=== PATIENT | male | born 1930 | race Caucasian/White ===

== ENCOUNTER 2016-10-07 08:51 | Emergency (ER) | payer MEDICARE ==
[~2016-10-07] VITALS: Ht 170.2 cm; Wt 81.6 kg
[~2016-10-07 08:51] MED LIST: GEMF600T3 PO; GLIM1TAB PO; MEMA10TA PO
--- NOTE | 2016-10-07 10:26 | Diagnostic Imaging Report ---
PROCEDURE: US right lower extremity venous. TECHNIQUE: Multiple real-time grayscale images were obtained over the right lower extremity in various projections. Additional duplex Doppler and color Doppler images were also obtained. INDICATION: Right leg pain. COMPARISON: None. FINDINGS: The right common femoral vein, superficial femoral vein, profunda femoris, and popliteal veins are normal. These vessels show normal compressibility, color flow, and doppler augmentation. The deep calf veins, although not very well seen, demonstrate no distinct intraluminal thrombus. IMPRESSION: Negative venous Doppler of the right lower extremity. Dictated by: Dictated on workstation # [id number]
--- NOTE | 2016-10-07 10:28 | Diagnostic Imaging Report ---
EXAM: PELVIS INDICATION: Fall. Right leg pain. COMPARISON: None. FINDINGS: Moderate degenerative changes in both hips. No fractures. Normal alignment. Degenerative changes in the visualized lower lumbar spine. Soft tissue shadows are unremarkable. IMPRESSION: No acute radiographic findings in the pelvis. Dictated by: Dictated on workstation # [id number]
--- NOTE | 2016-10-07 10:30 | Diagnostic Imaging Report ---
EXAM: TIBIA/FIBULA, RIGHT, 2 VIEWS INDICATION: Right leg pain. Fall. COMPARISON: None. FINDINGS: No fracture or malalignment. Vascular calcifications. Soft tissue shadows are otherwise unremarkable. No joint effusion. IMPRESSION: No acute radiographic findings in the right tibia or fibula. Dictated by: Dictated on workstation # [id number]
--- NOTE | 2016-10-07 10:33 | ED Lower Extremity ---
General Chief Complaint: Lower Extremity Stated Complaint: R LEG PAIN Nursing Triage Note: PT C/O R CALF PAIN X 4 DAYS. FAMILY DENIES INJURY. Nursing Sepsis Screen: No Definite Risk Source: patient (LIMITED HISTORIAN), family ( AND SON) History of Present Illness Time seen by provider: 09:08 Initial Comments PT ARRIVES VIA POV FROM HOME C/O RIGHT LEG PAIN X 4 DAYS--PAIN MOSTLY IN RIGHT CALF FELL 3 DAYS AGO, BUT DOES NOT THINK HE INJURED HIS LEG, AND THERE IS NO KNOWN INJURY PRIOR TO THAT NO PARESTHESIAS OR MOTOR DEFICITS NO PRIOR PROBLEMS WITH LEG PCP: [facility] Allergies and Home Medications Allergies Coded Allergies: No Known Drug Allergies (Unverified , 06/11/11) Home Medications Gemfibrozil 600 Mg Tablet, 1 EACH PO BID, (Reported) Glimepiride 1 Mg Tablet, 1 MG PO DAILY, (Reported) Meloxicam 7.5 Mg Tablet, 7.5 MG PO DAILY, #10 Prescribed by: RINA BUSH on 10/07/16 1138 Memantine Hcl 10 Mg Tablet, 1 EACH PO BID, (Reported) Constitutional: no symptoms reported Respiratory: no symptoms reported Cardiovascular: no symptoms reported Musculoskeletal: see HPI Skin: no symptoms reported Psychiatric/Neurological: No Symptoms Reported, Pre-Existing Deficit (PT WITH DEMENTIA) Past Jstnnko-Nrhrra-Ofzpzn Hx Patient Social History Alcohol Use: Denies Use Recreational Drug Use: No Smoking Status: Never a Smoker 2nd Hand Smoke Exposure: No Recent Foreign Travel: No Contact w/Someone Who Travel: No Recent Infectious Disease Expo: No Recent Hopitalizations: No Immunizations Up To Date Tetanus Booster (TDap): Unknown Date of Pneumonia Vaccine: Sep 02, 2014 Date of Influenza Vaccine: May 04, 2014 Seasonal Allergies Seasonal Allergies: No Surgeries HX Surgeries: Yes (HERNIA REPAIR) Surgeries: Abdominal, Transurethral Resection Respiratory Hx Respiratory Disorders: No Cardiovascular Hx Cardiac Disorders: Yes Cardiac Disorders: High Cholesterol Neurological Hx Neurological Disorders: Yes Neurological Disorders: Dementia, Parkinson's Disease Reproductive System Hx Reproductive Disorders: No Sexually Transmitted Disease: No HIV/AIDS: No Genitourinary Hx Genitourinary Disorders: Yes Genitourinary Disorders: Benign Prostatic Hyperpl Gastrointestinal Hx Gastrointestinal Disorders: Yes Gastrointestinal Disorders: Abdominal Hernia Musculoskeletal Hx Musculoskeletal Disorders: No Endocrine Hx Endocrine Disorders: No HEENT HX ENT Disorders: Yes HEENT Disorders: Chronic Ear Infection Cancer Hx Cancer: No Psychosocial Hx Psychiatric Problems: No Integumentary HX Skin/Integumentary Disorder: Yes Skin/Integumentary Disorders: Herpes Physical Exam Vital Signs Vital Sign - Last 12Hours 10/07/16 09:10 Temp 97.2 Pulse 55 Resp 16 B/P (MAP) 177/74 Pulse Ox 97 O2 Delivery Room Air Capillary Refill : Less Than 3 Seconds General Appearance: WD/WN, no apparent distress Neck: normal inspection Cardiovascular: regular rate, rhythm, no murmur Respiratory: normal breath sounds, no respiratory distress, no accessory muscle use Gastrointestinal: normal bowel sounds, soft Back: no CVA tenderness, no vertebral tenderness Hips: bilateral hip non-tender, bilateral hip normal inspection, bilateral hip normal range of motion, bilateral hip no evidence of injury Legs: right leg other (SLIGHT TENDERNESS IN RIGHT CALF) Knees: right knee non-tender, right knee normal inspection, right knee normal range of motion, right knee no evidence of injury Ankles: right ankle non-tender, right ankle normal inspection, right ankle normal range of motion, right ankle no evidence of injury Feet: right foot non-tender, right foot normal inspection, right foot normal range of motion, right foot no evidence of injury Neurologic/Tendon: normal sensation, normal motor functions, normal tendon functions 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 SLIGHTLY CONFUSED TO TIME?) Skin: normal color, warm/dry, No ecchymosis, other (NO WOUNDS OR EXTERNAL EVIDENCE OF TRAUMA) Progress/Results/Core Measures Results/Orders Lab Results Laboratory Tests Test 10/07/16 10:27 Range/Units White Blood Count 7.5 4.3-11.0 10^3/uL Red Blood Count 4.41 4.35-5.85 10^6/uL Hemoglobin 13.6 13.3-17.7 G/DL Hematocrit 40 40-54 % Mean Corpuscular Volume 91 80-99 FL Mean Corpuscular Hemoglobin 31 25-34 PG Mean Corpuscular Hemoglobin Concent 34 32-36 G/DL Red Cell Distribution Width 13.3 10.0-14.5 % Platelet Count 251 130-400 10^3/uL Mean Platelet Volume 8.9 7.4-10.4 FL Neutrophils (%) (Auto) 50 42-75 % Lymphocytes (%) (Auto) 38 12-44 % Monocytes (%) (Auto) 8 0-12 % Eosinophils (%) (Auto) 4 0-10 % Basophils (%) (Auto) 1 0-10 % Neutrophils # (Auto) 3.8 1.8-7.8 X 10^3 Lymphocytes # (Auto) 2.8 1.0-4.0 X 10^3 Monocytes # (Auto) 0.6 0.0-1.0 X 10^3 Eosinophils # (Auto) 0.3 0.0-0.3 10^3/uL Basophils # (Auto) 0.1 0.0-0.1 10^3/uL Prothrombin Time 12.9 12.2-14.7 SEC INR Comment 1.0 0.8-1.4 Activated Partial Thromboplast Time 31 24-35 SEC Sodium Level 134 L 135-145 MMOL/L Potassium Level 5.0 3.6-5.0 MMOL/L Chloride Level 100 98-107 MMOL/L Carbon Dioxide Level 26 21-32 MMOL/L Anion Gap 8 5-14 MMOL/L Blood Urea Nitrogen 19 H 7-18 MG/DL Creatinine 0.91 0.60-1.30 MG/DL Estimat Glomerular Filtration Rate > 60 BUN/Creatinine Ratio 21 Glucose Level 115 H 70-105 MG/DL Calcium Level 9.0 8.5-10.1 MG/DL Magnesium Level 2.2 1.8-2.4 MG/DL Total Bilirubin 0.5 0.1-1.0 MG/DL Aspartate Amino Transf (AST/SGOT) 24 5-34 U/L Alanine Aminotransferase (ALT/SGPT) < 6 0-55 U/L Alkaline Phosphatase 48 40-136 U/L B-Type Natriuretic Peptide 213.2 H <100.0 PG/ML Total Protein 6.3 L 6.4-8.2 G/DL Albumin 3.8 3.2-4.5 G/DL My Orders Orders - RINA BUSH DO Saline Lock/Iv-Start (10/07/16 09:13) BNP (10/07/16 09:13) Cbc With Automated Diff (10/07/16 09:13) Comprehensive Metabolic Panel (10/07/16 09:13) Magnesium (10/07/16 09:13) Protime With Inr (10/07/16 09:13) Partial Thromboplastin Time (10/07/16 09:13) Femur, Right, 2 Views (10/07/16 09:13) Tibia/Fibula, Right, 2 Views (10/07/16 09:13) Pelvis (10/07/16 09:13) Hip, Right, 2 Views (10/07/16 09:13) Us Venous Lower Ext Rt (10/07/16 09:13) Ketorolac Injection (Toradol Injection) (10/07/16 11:45) Vital Signs/I&O Vital Sign - Last 12Hours 10/07/16 10/07/16 09:10 11:55 Temp 97.2 97.2 Pulse 55 55 Resp 16 16 B/P (MAP) 177/74 Pulse Ox 97 97 O2 Delivery Room Air Blood Pressure Mean: 108 Diagnostic Imaging Comments ULTRASOUND RIGHT LEG--NO DVT, PER RADIOLOGIST REPORT @ 1033 XRAYS PELVIS, RIGHT HIP, RIGHT FEMUR, RIGHT TIB-FIB--NO ACUTE PROCESS, PER RADIOLOGIST REPORTS ( HIP AND FEMUR REPORTS STILL PENDING AT TIME OF DISMISSAL, BUT NO ACUTE PROCESS NOTED BY ME) Reviewed: Reviewed by Me Departure Impression Impression: Primary Impression: Right leg pain Disposition: 01 HOME, SELF-CARE Condition: Stable Departure-Patient Inst. Referrals: NGOC PUGA MD (PCP/Family) Primary Care Physician Patient Instructions: Muscle and Bone Pain (DC) Add. Discharge Instructions: ACTIVITIES TOLERATED FOLLOW UP WITH YOUR DR IN 3-4 DAYS IF NO BETTER All discharge instructions reviewed with patient and/or family. Voiced understanding. Scripts Meloxicam (Mobic) 7.5 Mg Tablet 7.5 MG PO DAILY, #10 TAB Prov: RINA BUSH DO 10/07/16 RINA BUSH DO Oct 07, 2016 10:33
[2016-10-07 10:39] LABS: BASOPHILS # (AUTO) 0.1 10^3/uL (0.0-0.1); BASOPHILS % (AUTO) 1 % (0-10); EOSINOPHILS # (AUTO) 0.3 10^3/uL (0.0-0.3); EOSINOPHILS % (AUTO) 4 % (0-10); LYMPHOCYTES # (AUTO) 2.8 X 10^3 (1.0-4.0); LYMPHOCYTES % (AUTO) 38 % (12-44); MEAN CORPUSCULAR HEMOGLOBIN 31 PG (25-34); MEAN CORPUSCULAR HGB CONC 34 G/DL (32-36); MEAN CORPUSCULAR VOLUME 91 FL (80-99); MEAN PLATELET VOLUME 8.9 FL (7.4-10.4); MONOCYTES # (AUTO) 0.6 X 10^3 (0.0-1.0); MONOCYTES % (AUTO) 8 % (0-12); NEUTROPHILS # (AUTO) 3.8 X 10^3 (1.8-7.8); NEUTROPHILS % (AUTO) 50 % (42-75); PLATELET COUNT 251 10^3/uL (130-400); RED BLOOD COUNT 4.41 10^6/uL (4.35-5.85); RED CELL DISTRIBUTION WIDTH 13.3 % (10.0-14.5); WHITE BLOOD COUNT 7.5 10^3/uL (4.3-11.0)
[2016-10-07 10:47] LABS: PROTHROMBIN TIME PATIENT 12.9 SEC (12.2-14.7)
[2016-10-07 10:55] LABS: ALANINE AMINOTRANSFERASE < 6 U/L (0-55); ALBUMIN 3.8 G/DL (3.2-4.5); ANION GAP 8 MMOL/L (5-14); ASPARTATE AMINO TRANSFERASE 24 U/L (5-34); BILIRUBIN,TOTAL 0.5 MG/DL (0.1-1.0); BLOOD UREA NITROGEN 19 MG/DL (7-18); BUN/CREATININE RATIO 21; CARBON DIOXIDE 26 MMOL/L (21-32); CHLORIDE 100 MMOL/L (98-107); CREATININE SERUM 0.91 MG/DL (0.60-1.30); GFR ESTIMATED > 60; GLUCOSE 115 MG/DL (70-105); MAGNESIUM 2.2 MG/DL (1.8-2.4); SODIUM 134 MMOL/L (135-145); TOTAL PROTEIN 6.3 G/DL (6.4-8.2)
[2016-10-07] MEDS ORDERED: MELO-170 PO (11:38)
[2016-10-07] MEDS ORDERED: KETOROLAC 30 MG/ML VIAL IVP ONE (11:45)
[2016-10-07 11:55] VITALS: BP 177/74
--- NOTE | 2016-10-12 15:14 | RADIOLOGY REPORT ---
Patient name: ERIKA ROSENTHAL ACC: [id number] : 1930 Age:86 years Room: Class: Emergency Gender: Male ORD DR: RINA BUSH DO Phone: ATT DR: RINA BUSH DO Phone: Procedure: FEMUR, RIGHT, 2 VIEWS, ORD Date: 10/07/2016 10:40 AM Reason for Study: Final Report EXAM: FEMUR, RIGHT, 2 VIEWS, HIP, RIGHT, 2 VIEWS INDICATION: Fall. Right leg pain. COMPARISON: None. FINDINGS: Moderate degenerative changes in the right hip. No fractures or malalignment. Soft tissue shadows are unremarkable. IMPRESSION: Negative right hip and femur radiographs. Dictated by: Created by: Иван Simpson on 10/07/2016 10:26 AM Transcribed by: BAY 10/07/2016 10:28 AM ARTHUR
--- NOTE | 2016-10-12 15:20 | RADIOLOGY REPORT ---
Patient name: ERIKA ROSENTHAL ACC: [id number] : 1930 Age:86 years Room: Class: Emergency Gender: Male ORD DR: RINA BUSH DO Phone: ATT DR: RINA BUSH DO Phone: Procedure: HIP, RIGHT, 2 VIEWS ORD Date: 10/07/2016 10:40 AM Reason for Study: Final Report EXAM: HIP, RIGHT, 2 VIEWS INDICATION: Fall. Right leg pain. COMPARISON: None. FINDINGS: Moderate degenerative changes in the right hip. No fractures or malalignment. Soft tissue shadows are unremarkable. IMPRESSION: Negative right hip and femur radiographs. Dictated by: Created by: Иван Simpson on 10/07/2016 10:26 AM Transcribed by: BAY 10/07/2016 10:28 AM RATHUR
== END 2016-10-07 11:55 | disposition home or self-care (01) ==
LOC: EDUNIT# 08:51 → ER 08:54
DX: M79.661 Pain in right lower leg (principal); G20 Parkinson's disease; F03.90 Unspecified dementia, unspecified severity, without behavioral disturbance, psychotic disturbance, mood disturbance, and anxiety; Z79.899 Other long term (current) drug therapy
CPT/HCPCS: 36415; 72170; 73502; 73552; 73590; 80053; 83735; 83880; 85025; 85610; 85730; 96374

== ENCOUNTER 2017-01-26 20:47 | Emergency (ER) | payer MEDICARE, OTHER ==
[~2017-01-26] VITALS: Ht 170.2 cm; Wt 90.7 kg
[~2017-01-26 20:47] MED LIST changes: +MELO-170 PO
[2017-01-26] MEDS ORDERED: NYST1000 (20:53)
[2017-01-26] MEDS ORDERED: ATOR10TA66 (20:53)
[2017-01-26] MEDS ORDERED: CARB1TAB41 (20:53)
[2017-01-26 21:02] LABS: BASOPHILS # (AUTO) 0.1 10^3/uL (0.0-0.1); BASOPHILS % (AUTO) 1 % (0-10); EOSINOPHILS # (AUTO) 0.3 10^3/uL (0.0-0.3); EOSINOPHILS % (AUTO) 3 % (0-10); LYMPHOCYTES # (AUTO) 2.2 X 10^3 (1.0-4.0); LYMPHOCYTES % (AUTO) 23 % (12-44); MEAN CORPUSCULAR HEMOGLOBIN 31 PG (25-34); MEAN CORPUSCULAR HGB CONC 35 G/DL (32-36); MEAN CORPUSCULAR VOLUME 90 FL (80-99); MEAN PLATELET VOLUME 8.5 FL (7.4-10.4); MONOCYTES # (AUTO) 0.7 X 10^3 (0.0-1.0); MONOCYTES % (AUTO) 8 % (0-12); NEUTROPHILS # (AUTO) 6.3 X 10^3 (1.8-7.8); NEUTROPHILS % (AUTO) 66 % (42-75); PLATELET COUNT 279 10^3/uL (130-400); RED BLOOD COUNT 4.23 10^6/uL (4.35-5.85); RED CELL DISTRIBUTION WIDTH 13.2 % (10.0-14.5); WHITE BLOOD COUNT 9.6 10^3/uL (4.3-11.0)
[2017-01-26 21:19] LABS: ALBUMIN 3.7 GM/DL (3.2-4.5); BILIRUBIN,TOTAL 0.3 MG/DL (0.1-1.0); CREATININE SERUM 1.24 MG/DL (0.60-1.30); MAGNESIUM 1.9 MG/DL (1.8-2.4); POTASSIUM 4.3 MMOL/L (3.6-5.0); TOTAL PROTEIN 6.4 GM/DL (6.4-8.2)
--- NOTE | 2017-01-26 21:41 | Diagnostic Imaging Report ---
INDICATION: Generalized weakness Upright chest shows normal heart size and vascularity. The lungs are clear. There is no effusion or pneumothorax. IMPRESSION: No acute abnormality is seen. Dictated by: Dictated on workstation # [id number]
[2017-01-26 21:53] LABS: BILIRUBIN,URINE NEGATIVE (NEGATIVE); KETONES,URINE NEGATIVE (NEGATIVE); LEUKOCYTE ESTERASE ,URINE NEGATIVE (NEGATIVE); NITRITE,URINE NEGATIVE (NEGATIVE); PH,URINE 7 (5-9); PROTEIN,URINE NEGATIVE (NEGATIVE); UROBILINOGEN,URINE NORMAL (NORMAL)
[2017-01-26 22:06] LABS: TROPONIN I < 0.30 NG/ML (<0.30)
[2017-01-26 22:09] LABS: SQUAMOUS EPITHELIAL CELL,UR 0-2 /HPF; WBC,URINE RARE /HPF
[2017-01-26] MEDS ORDERED: APIX5TAB PO (22:50)
--- NOTE | 2017-01-26 22:50 | ED Cardiac General ---
History of Present Illness General Chief Complaint: Cardiac/General Problems Stated Complaint: WEAKNESS Nursing Triage Note: BROUGHT IN BY [facility] FOR GENERALIZED WEAKNESS, POSSIBLE NEW ONSET AFIB. Source: patient, family, EMS Exam Limitations: no limitations History of Present Illness Time seen by provider: 20:49 Initial Comments This 86-year-old gentleman presents to the emergency room via EMS after having an episode of weakness and collapse at home. There was no injury. He lowered himself to his knees. He uses a walker at home at baseline. EMS reports new onset of atrial fibrillation on their EKG. Family reports he was recently seen by Dr. Clifton in the office and had mild hyponatremia. He is also being treated for thrush. He denies any head injury from his fall. He has no pain at this time beyond his chronic pain. Patient is also being worked up for right leg pain and back issues by Dr. Puga. Allergies and Home Medications Allergies Coded Allergies: No Known Drug Allergies (Unverified , 06/11/11) Home Medications Apixaban 5 Mg Tablet, 10 MG PO BID, #14 2 TABLETS TWICE DAILY X 7 DAYS Prescribed by: SLY CASON on 01/26/17 2250 Atorvastatin Calcium 10 Mg Tablet, #90 (Reported) Carbidopa/Levodopa 1 Each Tablet.er, #60 (Reported) Gemfibrozil 600 Mg Tablet, 1 EACH PO BID, (Reported) Glimepiride 1 Mg Tablet, 1 MG PO DAILY, (Reported) Meloxicam 7.5 Mg Tablet, 7.5 MG PO DAILY, #10 Prescribed by: RINA BUSH on 10/07/16 1138 Memantine Hcl 10 Mg Tablet, 1 EACH PO BID, (Reported) Nystatin 100,000 Unit/1 Ml Oral.susp, #280 (Reported) Review of Systems Constitutional: see HPI EENTM: No Symptoms Reported Respiratory: No Symptoms Reported Cardiovascular: See HPI Gastrointestinal: No Symptoms Reported Genitourinary: No Symptoms Reported Musculoskeletal: see HPI Skin: no symptoms reported Psychiatric/Neurological: Other (Tremor, cognitive changes, and weakness due to dementia and Parkinson's at baseline) Endocrine: No Symptoms Reported Hematologic/Lymphatic: No Symptoms Reported Past Zxowwao-Xqswnx-Smeegt Hx Patient Social History Alcohol Use: Denies Use Recreational Drug Use: No Smoking Status: Never a Smoker 2nd Hand Smoke Exposure: No Recent Foreign Travel: No Contact w/Someone Who Travel: No Recent Infectious Disease Expo: No Recent Hopitalizations: No Immunizations Up To Date Tetanus Booster (TDap): Unknown Date of Pneumonia Vaccine: Sep 02, 2014 Date of Influenza Vaccine: May 04, 2014 Seasonal Allergies Seasonal Allergies: No Surgeries HX Surgeries: Yes (HERNIA REPAIR) Surgeries: Abdominal, Transurethral Resection Respiratory Hx Respiratory Disorders: No Cardiovascular Hx Cardiac Disorders: Yes Cardiac Disorders: High Cholesterol Neurological Hx Neurological Disorders: Yes Neurological Disorders: Dementia, Parkinson's Disease Reproductive System Hx Reproductive Disorders: No Sexually Transmitted Disease: No HIV/AIDS: No Genitourinary Hx Genitourinary Disorders: Yes Genitourinary Disorders: Benign Prostatic Hyperpl Gastrointestinal Hx Gastrointestinal Disorders: Yes Gastrointestinal Disorders: Abdominal Hernia Musculoskeletal Hx Musculoskeletal Disorders: Yes Hx Musculoskeletal Disorders: No Musculoskeletal Disorders: Chronic Back Pain Endocrine Hx Endocrine Disorders: No HEENT HX ENT Disorders: Yes HEENT Disorders: Chronic Ear Infection Cancer Hx Cancer: No Psychosocial Hx Psychiatric Problems: No Integumentary HX Skin/Integumentary Disorder: Yes Skin/Integumentary Disorders: Herpes Physical Exam Vital Signs Vital Sign - Last 12Hours 01/26/17 20:53 Temp 97.4 Pulse 89 Resp 18 B/P (MAP) 156/79 Pulse Ox 96 O2 Delivery Room Air Capillary Refill : Less Than 3 Seconds General Appearance: No Apparent Distress, WD/WN HEENT: PERRL/EOMI, Normal ENT Inspection, Pharynx Normal Neck: Normal Inspection, Non Tender Respiratory: Lungs Clear, Normal Breath Sounds, No Accessory Muscle Use, No Respiratory Distress Cardiovascular: No Edema, No Murmur, Irregularly Irregular Gastrointestinal: Non Tender, Soft Extremity: Normal Inspection, No Pedal Edema Neurologic/Psychiatric: Alert, No Motor/Sensory Deficits, Normal Mood/Affect, [employer]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 Tremor from Parkinson's) Skin: Normal Color, Warm/Dry Progress/Results/Core Measures Results/Orders Lab Results Laboratory Tests Test 01/26/17 20:50 01/26/17 21:05 01/26/17 21:42 Range/Units White Blood Count 9.6 4.3-11.0 10^3/uL Red Blood Count 4.23 L 4.35-5.85 10^6/uL Hemoglobin 13.2 L 13.3-17.7 G/DL Hematocrit 38 L 40-54 % Mean Corpuscular Volume 90 80-99 FL Mean Corpuscular Hemoglobin 31 25-34 PG Mean Corpuscular Hemoglobin Concent 35 32-36 G/DL Red Cell Distribution Width 13.2 10.0-14.5 % Platelet Count 279 130-400 10^3/uL Mean Platelet Volume 8.5 7.4-10.4 FL Neutrophils (%) (Auto) 66 42-75 % Lymphocytes (%) (Auto) 23 12-44 % Monocytes (%) (Auto) 8 0-12 % Eosinophils (%) (Auto) 3 0-10 % Basophils (%) (Auto) 1 0-10 % Neutrophils # (Auto) 6.3 1.8-7.8 X 10^3 Lymphocytes # (Auto) 2.2 1.0-4.0 X 10^3 Monocytes # (Auto) 0.7 0.0-1.0 X 10^3 Eosinophils # (Auto) 0.3 0.0-0.3 10^3/uL Basophils # (Auto) 0.1 0.0-0.1 10^3/uL Sodium Level 131 L 135-145 MMOL/L Potassium Level 4.3 3.6-5.0 MMOL/L Chloride Level 98 98-107 MMOL/L Carbon Dioxide Level 22 21-32 MMOL/L Anion Gap 11 5-14 MMOL/L Blood Urea Nitrogen 21 H 7-18 MG/DL Creatinine 1.24 0.60-1.30 MG/DL Estimat Glomerular Filtration Rate 55 BUN/Creatinine Ratio 17 Glucose Level 149 H 70-105 MG/DL Calcium Level 9.0 8.5-10.1 MG/DL Magnesium Level 1.9 1.8-2.4 MG/DL Total Bilirubin 0.3 0.1-1.0 MG/DL Aspartate Amino Transf (AST/SGOT) 23 5-34 U/L Alanine Aminotransferase (ALT/SGPT) 15 0-55 U/L Alkaline Phosphatase 48 40-136 U/L B-Type Natriuretic Peptide 146.3 H <100.0 PG/ML Total Protein 6.4 6.4-8.2 GM/DL Albumin 3.7 3.2-4.5 GM/DL Troponin I < 0.30 <0.30 NG/ML TSH [facility] Testing 2.78 0.35-4.94 UIU/ML Urine Color YELLOW Urine Clarity CLEAR Urine pH 7 5-9 Urine Specific [place] 1.010 L 1.016-1.022 Urine Protein NEGATIVE NEGATIVE Urine Glucose (UA) NEGATIVE NEGATIVE Urine Ketones NEGATIVE NEGATIVE Urine Nitrite NEGATIVE NEGATIVE Urine Bilirubin NEGATIVE NEGATIVE Urine Urobilinogen NORMAL NORMAL MG/DL Urine Leukocyte Esterase NEGATIVE NEGATIVE Urine RBC (Auto) NEGATIVE NEGATIVE Urine RBC NONE /HPF Urine WBC RARE /HPF Urine Squamous Epithelial Cells 0-2 /HPF Urine Crystals NONE /LPF Urine Bacteria NEGATIVE /HPF Urine Casts NONE /LPF Urine Hyaline Casts 5-10 H /LPF Urine Mucus NEGATIVE /LPF Urine Culture Indicated NO My Orders Orders - SLY LARA MD BNP (01/26/17 20:57) Cbc With Automated Diff (01/26/17 20:57) Comprehensive Metabolic Panel (01/26/17 20:57) Magnesium (01/26/17 20:57) Ua Culture If Indicated (01/26/17 20:57) Saline Lock/Iv-Start (01/26/17 20:57) Chest 1 View, Ap/Pa Only (01/26/17 20:57) Ekg Tracing (01/26/17 20:58) Monitor-Rhythm Ecg Trace Only (01/26/17 20:58) Thyroid Analyzer (01/26/17 21:11) Troponin I (01/26/17 21:11) Vital Signs/I&O Vital Sign - Last 12Hours 01/26/17 01/26/17 20:53 23:03 Temp 97.4 97.9 Pulse 89 60 Resp 18 18 B/P (MAP) 156/79 Pulse Ox 96 97 O2 Delivery Room Air Room Air Blood Pressure Mean: 104 Progress Note : Progress Note Workup was relatively unremarkable. Patient demonstrated good rate control with his atrial fibrillation without treatment. I discussed the risks and benefits of anticoagulation with patient and family. They elect to start anticoagulation at this time until further discussion with Dr. Puga. The first dose of Eliquis was administered in the ER. Patient demonstrated ability to rise and walk safely and independently with walker before discharge. ECG Initial ECG Impression Date: Jan 26, 2017 Initial ECG Impression Time: 21:01 Initial ECG Rate: 69 Initial ECG Rhythm: A Fib/Flutter Initial ECG Impression: Atrial Fibrillation Comment Atrial fibrillation with controlled rate. No ST elevation or depression. No abnormal intervals or axis deviation. Diagnostic Imaging Diagonstic Imaging: Xray Plain Films/CT/US/NM/MRI: chest Comments Chest x-ray viewed by me and report reviewed. See report below: NAME: ERIKA ROSENTHAL [facility] REC#: [id number] PT STATUS: REG ER : 1930 PHYSICIAN: SLY LARA MD ADMIT DATE: 01/26/17/ER Signed Date of Exam: 01/26/17 CHEST 1 VIEW, AP/PA ONLY INDICATION: Generalized weakness Upright chest shows normal heart size and vascularity. The lungs are clear. There is no effusion or pneumothorax. IMPRESSION: No acute abnormality is seen. Dictated by: Dictated on workstation # [id number] Dict: 01/26/172138 Trans: 01/26/172141 Interpreted by: LETICIA DE JESUS MD Electronically signed by: LETICIA DE JESUS MD 01/26/172141 Departure Impression Impression: Primary Impression: New onset atrial fibrillation Additional Impressions: Weakness Fall on same level Qualified Codes: W18.30XA - Fall on same level, unspecified, initial encounter Disposition: HOME, SELF-CARE Condition: Improved Departure-Patient Inst. Decision time for Depature: 22:48 Referrals: NGOC PUGA MD (PCP/Family) Primary Care Physician Patient Instructions: Atrial Fibrillation (DC) Add. Discharge Instructions: Keep your appointment with Dr. Puga next week. Until then, continue taking Eliquis as prescribed. Return to the ER if symptoms worsen. Avoid taking NSAID medications such as Aleve, naproxen, ibuprofen, etc. while on Eliquis. Use Tylenol (acetaminophen) up to 1000 mg every 6 hours as needed as an alternative. Discuss further use of Eliquis with Dr. Puga. All discharge instructions reviewed with patient and/or family. Voiced understanding. Scripts Apixaban (Eliquis) 5 Mg Tablet 10 MG PO BID, #14 TAB 2 TABLETS TWICE DAILY X 7 DAYS Prov: SLY LARA MD 01/26/17 Copy Copies To 1: NGOC PUGA MD, JOSHUA T MD Jan 26, 2017 22:50
[2017-01-26 23:03] VITALS: BP 160/66
== END 2017-01-26 23:03 | disposition home or self-care (01) ==
LOC: EDUNIT# 20:47 → ER 20:49
DX: I48.91 Unspecified atrial fibrillation (principal); E78.00 Pure hypercholesterolemia, unspecified; F03.90 Unspecified dementia, unspecified severity, without behavioral disturbance, psychotic disturbance, mood disturbance, and anxiety; G20 Parkinson's disease; N40.0 Benign prostatic hyperplasia without lower urinary tract symptoms; G89.29 Other chronic pain; M54.9 Dorsalgia, unspecified
CPT/HCPCS: 36415; 71010; 80053; 81000; 83735; 83880; 84443; 84484; 85025; 93005; 93041